=== PATIENT | female | born 1990 | race Caucasian/White ===

== ENCOUNTER 2020-07-05 10:58 | Emergency (ER) | payer OTHER, SELFPAY ==
--- NOTE | ~2020-07-05 | CT_ITS ---
EXAMINATION: CT abdomen pelvis w con DATE: 07/05/2020 12:38 INDICATION: Left buttock pain for 2 days. Perirenal abscess. TECHNIQUE: Computed tomography (CT) of the abdomen and pelvis was performed with 100 cc Omnipaque 350 intravenous contrast. Automated exposure control and iterative reconstruction technique were employe d. Exam dose: 382.13 mGy-cm total exam DLP. COMPARISON: None. FINDINGS: The lung bases are clear. Normal heart size. No pericardial or pleural effusion. The liver, gallbladder, bile ducts, pancreas, pancreatic duct and spleen appear normal. Normal morpho logy of the adrenal glands. No renal mass lesion or urinary tract calculus or hydroureteronephrosis i s detected. The uterus, adnexal areas and urinary bladder are unremarkable except for approximately 2 cm left ovarian cyst and mild likely physiologic free fluid in the cul-de-sac. Approximately 2.5 x 4.2 cm axial x 2.6 cm vertical dimension left posterolateral perirectal abscess, abutting the fifth sacral segment and coccyx posteriorly. IMPRESSION: Posterolateral left perirectal abscess measuring 2.5 x 4.2 x 2.6 cm 2 cm left ovarian cyst Reviewed, dictated and finalized at [facility] Reviewed, dictated and finalized at [facility] D[employer] YOUTH COUNSELOR IMPRESSION: Posterolateral left perirectal abscess measuring 2.5 x 4.2 x 2.6 c m 2 cm left ovarian cyst
[2020-07-05 11:05] VITALS: BP 112/70; PULSE 97; RESP 16; TEMP 36.9; O2SAT 100
--- NOTE | 2020-07-05 11:18 | ED.SKABFB ---
HPI - Skin/Abscess/Foreign Bdy General Chief complaint: Skin/Abscess/Foreign Body Stated complaint: pain/inflammation near anus Time Seen by Provider: 07/05/20 11:18 Source: patient Mode of arrival: ambulatory Limitations: no limitations History of Present Illness HPI narrative: 30-year-old woman comes in today complaining of pain on the left side of her and has for the last 2 days. Patient states that she has had no fever, pain with bowel movements, vomiting, blood in her stools, but she has felt ill for the last 24 hours. She denies prior similar symptoms. She is on Nexplanon. complaint: abscess/boil Onset (ago): day(s) (2) Location: buttocks Severity: moderate Quality: sharp Pain Consistency: constant Relieving factors: none Exacerbating factors: palpation and movement Associated symptoms: malaise Treatments prior to arrival: none Related Data Allergies Allergy/AdvReac Type Severity Reaction Status Date / Time No Known Allergies Allergy Verified 07/05/20 11:43 Review of Systems Constitutional: Constitutional: Denies chills and Denies fever(s) Eyes: Eyes: Denies change in vision and Denies photophobia ENT: Denies dysphagia, Denies nasal congestion and Denies sore throat Cardiovascular: Cardiovascular: Denies chest pain and Denies radiating jaw, neck or arm pain Respiratory: Respiratory: Denies cough, Denies dyspnea and Denies wheezing Gastrointestinal: Gastrointestinal: Denies abdominal pain, Denies diarrhea, Denies nausea and Denies vomiting Genitourinary: Genitourinary: Denies nocturia and Denies dysuria Musculoskeletal: Musculoskeletal: Denies back pain, Denies arthralgias and Denies joint swelling Integumentary/Breasts: Skin/Breast: Denies pruritus, Denies erythema and Denies rash Neurologic: Denies vertigo, Denies dizziness and Denies syncope Hematologic/Lymphatic: Hematologic/Lymphatic: Denies easy bleeding and Denies easy bruising Allergic/Immunologic: Allergic/Immunologic: Denies lip swelling and Denies tongue swelling PMFSH Surgical History Surgical History (Updated 07/05/20 @ 11:36 by Angel Green MD) History of appendectomy Social History Social History (Updated 07/05/20 @ 11:36 by Angel Green MD) Smoking status: Current every day smoker Alcohol intake: current Substance use: current Substance use type: marijuana Living arrangements: with family Exam Const: General: healthy appearing and alert Orientation/consciousness: patient oriented x3 Other: Mild acute distress Eyes: Conjunctivae: conjunctivae normal Pupils: Equal, round and reactive pupils present EOM: EOMs intact bilaterally Resp: Effort & Inspection: normal respiratory effort and not labored Auscultation: clear to auscultation bilaterally, no rales, no rhonchi and no wheezes Cardio: Rate: regular rate Rhythm: regular rhythm Heart sounds: no murmurs GI: GI Palp: Yes Soft to palpation and No Tenderness to palpation present (GI) Rectal Exam: No hemorrhoids Other: Tenderness, mild swelling and induration with overlying mild erythema in the left perianal area, Dorsal to the anus. TASHIA revealed no induration, tenderness, swelling or masses proximal to the sphincter. Skin: General skin exam: normal color, no jaundice and no pallor Rashes: no rashes Neuro: General: patient oriented x3, moves all extremities, no focal motor deficits and CN's II-XI intact bilaterally Speech: normal speech Gait exam (Neuro): Normal gait present Extrem: General: normal to inspection and no clubbing, cyanosis or edema Psych: Appearance: grossly normal and well kempt Mental Status: mental status grossly normal Affect: normal affect Attitude: cooperative Thought content: Yes Normal thought content present Course Vital Signs Vital signs: Vital Signs Temperature 36.9 C 07/05/20 11:05 Pulse Rate 97 07/05/20 11:05 Respiratory Rate 16 07/05/20 11:05 Blood Pressure 112/70 07/05/20 11:05 Pulse Oxim
[2020-07-05 11:37] LABS: Basophils Absolute Auto 0.03 K/mm3 (0.00-0.10); Basophils Percent Auto 0.2 % (0.0-1.0); Eosinophils Percent Auto 1.4 % (1.0-6.0); Hematocrit 39.4 % (35.0-49.0); Immature Granulocyte Absolute 0.07 K/mm3 (0.00-0.00); Immature Granulocyte Percent A 0.5 % (0.0-0.0); Lymphocytes Absolute Auto 1.99 K/mm3 (1.10-4.50); Mean Corpuscular Hemoglobin 30.6 pg (27.0-31.0); Mean Corpuscular Volume 92.7 fL (78.0-102.0); Mean Platelet Volume 10.4 fl (9.2-11.8); Monocytes Absolute Auto 0.93 K/mm3 (0.10-0.90); Monocytes Percent Auto 6.5 % (2.0-11.0); Neutrophils Percent Auto 77.4 % (50.0-70.0); Platelet Count Result 221 K/mm3 (150-420); Red Blood Count 4.25 M/mm3 (4.20-5.40); Red Cell Distribution Width 13.1 % (11.6-14.4); White Blood Count 14.2 K/mm3 (4.8-10.8)
[2020-07-05 11:53] LABS: Alanine Aminotransferase 18 U/L (14-59); Albumin Level 3.7 g/dL (3.4-5.0); Alkaline Phosphatase 68 U/L (46-116); Anion Gap 9 mmol/L (8-16); Aspartate Amino Transferase 13 U/L (15-37); Bilirubin,Total 0.6 mg/dL (0.00-1.00); Blood Urea Nitrogen 8 mg/dL (7-18); CRP 3.4 mg/dL (0.0-0.9); Calcium 8.8 mg/dL (8.5-10.1); Carbon Dioxide 25 mmol/L (21-32); Chloride 102 mmol/L (98-108); Estimated CRCL calculation 91 ml/min; Estimated Glomerular Filt Rate > 60; Glucose 92 mg/dL (70-99); Osmolality Calculated 280 mOsm/kg (285-295); Potassium 3.5 mmol/L (3.5-5.1); Sodium 136 mmol/L (136-145); Total Protein 7.4 g/dL (6.4-8.2)
[2020-07-05 12:04] LABS: Add Urine Microscopic? YES; Appearance Urine Sl Cloudy (Clear); Bilirubin Urine Negative (Negative); Blood Urine 2+ (Negative); Color Urine Yellow (Yellow); Glucose Urine UA Negative (Negative); Ketones Urine Negative (Negative); Leukocyte Esterase Ur Negative (Negative); Nitrate Urine Negative (Negative); Pregnancy On Board Control Positive; Protein Urine Negative (Negative); Urine Pregnancy Test Negative; Urobilinogen Urine 0.2 mg/dL (0.2-1.0)
[2020-07-05 12:08] LABS: Squamous Epithelial Cell Urine Moderate /hpf (Few); WBC Urine None seen /hpf (0-3)
[2020-07-05 12:09] LABS: Bacteria Urine 1+ /hpf
[2020-07-05 12:38] LABS: Erythrocyte Sedimentation Rate 23 mm/hr (0-15)
--- NOTE | 2020-07-05 13:02 | PC.NURSE ---
1255 MEGAN CONTACTED PER ERP REQUEST. MESSAGE LEFT ON VOICEMAIL. 1300 MACIE, MARKETING TECHNOLOGY SPECIALIST, CALLED BACK. MACIE TO PAGE OUT [employer] CARRIAGE OPERATOR SURGEON, DR. CAMPBELL. AWAITING CALL BACK
[2020-07-05 13:21] VITALS: PULSE 90; RESP 15; TEMP 36.6; O2SAT 98
== END 2020-07-05 13:26 | disposition home or self-care (01) ==
PROVIDERS: Emergency Provider Emergency Medicine
DX: K61.0 Anal abscess (principal)
CPT/HCPCS: 36415; 74177; 80053; 81001; 81025; 85025; 85652; 86140; 99283; 99284; A9270; Q9967

== ENCOUNTER 2020-07-06 17:56 | Observation (INO) | payer OTHER, SELFPAY ==
[2020-07-06 18:34] VITALS: BP 129/73; PULSE 101; RESP 18; TEMP 37.5; O2SAT 100
--- NOTE | 2020-07-06 18:35 | ED.GENADULT ---
HPI - General Adult General Chief complaint: Skin/Abscess/Foreign Body <Duarte Back PA-C - Last Filed: 07/06/20 19:26> Stated complaint: abcess <Duarte Back PA-C - Last Filed: 07/06/20 19:26> Time Seen by Provider: 07/06/20 17:58 <Duarte Back PA-C - Last Filed: 07/06/20 19:26> Source: patient, family and old records reviewed <Duarte Back PA-C - Last Filed: 07/06/20 19:26> Mode of arrival: ambulatory <Duarte Back PA-C - Last Filed: 07/06/20 19:26> Limitations: no limitations <Duarte Back PA-C - Last Filed: 07/06/20 19:26> History of Present Illness HPI narrative: Patient is a 30-year-old female who presents with perirectal irritation and swelling diagnosed with perirectal abscess yesterday at [facility] placed on Bactrim given pain medicine sent home and returns noting that the areas increasing with redness swelling and tenderness patient notes subjective fever with chills patient has been compliant with her medication but notes that the irritation is getting worse patient denies vomiting. Patient presents per private vehicle <Duarte Back PA-C - Last Filed: 07/06/20 19:26> Related Data Allergies/adverse reactions: Allergies Allergy/AdvReac Type Severity Reaction Status Date / Time No Known Allergies Allergy Verified 07/06/20 18:38 <Duarte Back PA-C - Last Filed: 07/06/20 19:26> Review of Systems Review of Systems: All systems reviewed & are unremarkable except as noted in HPI and below <Duarte Back PA-C - Last Filed: 07/06/20 19:26> PMFSH Surgical History Surgical History: Surgical History History of appendectomy <Duarte Back PA-C - Last Filed: 07/06/20 19:26> Social History Social History: Social History Smoking status: Current every day smoker Alcohol intake: current Substance use: current Substance use type: marijuana Gender identity (if verbalized by the patient): Female <KEVAN Marcano Last Filed: 07/06/20 19:26> Exam Narrative: Exam Narrative: GENERAL: Well-appearing, well-nourished, and in no acute distress. HEAD: Normocephalic, atraumatic. EYES: PERRLA and EOMI. ENT: Nares clear, no rhinorrhea or epistaxis. Mucous membranes moist. CHEST: Clear to auscultation. No respiratory distress. No wheezes rales or rhonchi HEART: Regular rate and rhythm. No murmur heard. Normal peripheral pulses. ABDOMEN: Soft, nontender, nondistended EXTREMITIES: Normal range of motion. No edema. SKIN: Warm, dry, no rash. Patient with red tender swollen area in the perirectum worse along the left side where there is some fluctuance for potential drainage site. NEURO: No focal deficits. Alert and oriented x3. Cranial nerves II through XII grossly intact PSYCH: Normal mood and affect. <KEVAN Marcano Last Filed: 07/06/20 19:26> Course Consultations Consultation #1: Spoke with Dr. Mccoy the surgeon who will admit the patient with consultation in the morning would like attempted I&D as well as IV antibiotics n.p.o. status at midnight <KEVAN Marcano Last Filed: 07/06/20 19:26> Date: 07/06/20 <KEVAN Marcano Last Filed: 07/06/20 19:26> Time: 18:37 <KEVAN Marcano Last Filed: 07/06/20 19:26> Vital Signs Vital signs: Vital Signs Temperature 37.5 C 07/06/20 18:34 Pulse Rate 101 H 07/06/20 18:34 Respiratory Rate 18 07/06/20 18:34 Blood Pressure 129/73 07/06/20 18:34 Pulse Oximetry 100 07/06/20 18:34 Temperature 37.5 C 07/06/20 18:34 Pulse Rate 96 07/06/20 20:17 Respiratory Rate 18 07/06/20 20:17 Blood Pressure 116/64 07/06/20 20:17 Pulse Oximetry 97 07/06/20 20:17 <KEVAN Marcano Last Filed: 07/06/20 19:26> Vital Signs Temperature 37.5 C 07/06/
--- NOTE | 2020-07-06 18:47 | PC.NURSE ---
IV unsuccessful after 3 attempts per this RN and 2 attempts per student. Pt states she is a hard stick due to having using IV drugs in the past.
[2020-07-06 19:07] LABS: Basophils Absolute Auto 0.1 K/mm3 (0.0-0.1); Basophils Percent Auto 0.2 % (0.2-1.2); Eosinophils Absolute Auto 0.1 K/mm3 (0-0.3); Eosinophils Percent Auto 0.3 % (0-4.4); Hematocrit 38.9 % (37.0-47.0); Hemoglobin 13.3 g/dL (12.0-15.0); Immature Granulocyte Absolute 0.11 K/mm3 (0.00-0.031); Immature Granulocyte Percent A 0.5 % (0-0.5); Lymphocytes Absolute Auto 1.68 K/mm3 (0.9-3.2); Mean Corpuscular HGB Conc 34.2 g/dl (32-36); Mean Corpuscular Hemoglobin 31.4 pg (26-34); Mean Platelet Volume 11.1 fl (7.4-10.4); Monocytes Absolute Auto 1.4 K/mm3 (0.1-0.6); Monocytes Percent Auto 6.6 % (2.6-8.5); Neutrophils Absolute Auto 17.8 K/mm3 (1.3-6.7); Neutrophils Percent Auto 84.4 % (45.5-73.1); Platelet Count Result 213 k/mm3 (150-375); Red Blood Count 4.23 M/mm3 (4.2-5.4); Red Cell Distribution Width 13.2 % (11.5-14.5); White Blood Count 21.1 K/mm3 (4.5-10.0)
[2020-07-06] MEDS: LORazepam INJ (*CRX) 2 MG/ML VIAL 1 MG IV PUSH (19:08)
[2020-07-06] MEDS: SODIUM CHLORIDE 0.9% IV 1,000 ML 999 ML IV CONT (19:08)
[2020-07-06] MEDS: IBUPROFEN IV 800 MG/200 ML 800 MG/200 ML BAG 400 MG IVPB (19:08)
[2020-07-06] MEDS: MORPHINE SULFATE (*CRX) 4 MG/ML INJ IV PUSH (19:08)
[2020-07-06 19:22] LABS: Alanine Aminotransferase 10 U/L (4-35); Albumin Level 4.3 g/dL (3.5-5.1); Alkaline Phosphatase 68 U/L (38-126); Anion Gap 8 mmol/L (8-16); Aspartate Amino Transferase 22 U/L (14-36); Bilirubin,Total 0.4 mg/dL (0.2-1.3); Blood Urea Nitrogen 8 mg/dL (7-17); CRP 5.6 mg/dL (<1.0); Calcium 9.2 mg/dL (8.4-10.2); Carbon Dioxide 23 mmol/L (22-30); Chloride 103 mmol/L (98-107); Estimated CRCL calculation 112 ml/min; Estimated Glomerular Filt Rate > 60; Glucose 95 mg/dL (65-105); Potassium 3.5 mmol/L (3.4-5.0); Sodium 134 mmol/L (137-145)
[2020-07-06] MEDS: LACTATED RINGERS 1,000 ML 125 ML IV CONT ×2 (20:13→22:17)
[2020-07-06] MEDS: CIPROFLOXACIN 400 MG/D5W 200ML 200 ML 200 MG IVPB (20:14)
[2020-07-06] MEDS: metroNIDAZOLE 500 MG/ISO 100ML 500 MG/100 ML BAG 100 MG IVPB (20:14)
[2020-07-06 20:17] VITALS: BP 116/64; PULSE 96; RESP 18; O2SAT 97
[2020-07-06] MEDS: ONDANSETRON INJ 4 MG/2 ML VIAL (21:14)
--- NOTE | 2020-07-06 21:19 | PC.NURSE ---
pt to the floor [id number] @[id number]
--- NOTE | 2020-07-06 21:34 | ADMGEN ---
This patient, Roxanne Delatorre, was admitted to 2 Medical Room 251-. Patient/family oriented to hospital policies and general routines including ID bracelet, bed and alarms, visiting hours, pain management, procedures, bathroom and other care routines, personal items, smoking policy, room service/diet, and visiting hours. Information on how to activate the Rapid Response Team has been discussed. Patient/Family are encouraged to report perceived risks to care and to ask questions if they do not understand what they are told or what they should do.
[2020-07-06 22:00] VITALS: BP 120/64; PULSE 98; RESP 16; TEMP 36.7; O2SAT 98
[2020-07-06] MEDS: FAMOTIDINE 20 MG/2 ML VIAL IV PUSH (22:17)
[2020-07-06 23:29] VITALS: BMI 30.3
[2020-07-07] VITALS (8 sets, daily range): BP systolic 103–122; BP diastolic 55–82; PULSE 78–91; RESP 16–18; TEMP 36.3–36.6; O2SAT 92–100
[2020-07-07] MEDS: metroNIDAZOLE 500 MG/ISO 100ML 500 MG/100 ML BAG 100 MG IVPB ×2 (03:32→11:28)
[2020-07-07 05:20] LABS: Basophils Percent Auto 0.3 % (0.2-1.2); Eosinophils Absolute Auto 0.1 K/mm3 (0-0.3); Eosinophils Percent Auto 0.9 % (0-4.4); Hematocrit 33.3 % (37.0-47.0); Hemoglobin 11.1 g/dL (12.0-15.0); Immature Granulocyte Absolute 0.07 K/mm3 (0.00-0.031); Immature Granulocyte Percent A 0.4 % (0-0.5); Lymphocytes Percent Auto 10.1 % (18.3-44.2); Mean Corpuscular HGB Conc 33.3 g/dl (32-36); Mean Corpuscular Hemoglobin 30.5 pg (26-34); Mean Corpuscular Volume 91.5 fl (80-100); Mean Platelet Volume 10.9 fl (7.4-10.4); Monocytes Absolute Auto 1.3 K/mm3 (0.1-0.6); Neutrophils Absolute Auto 12.7 K/mm3 (1.3-6.7); Neutrophils Percent Auto 80.3 % (45.5-73.1); Platelet Count Result 168 k/mm3 (150-375); Red Blood Count 3.64 M/mm3 (4.2-5.4); Red Cell Distribution Width 12.9 % (11.5-14.5); White Blood Count 15.8 K/mm3 (4.5-10.0)
[2020-07-07] MEDS: LACTATED RINGERS 1,000 ML 125 ML IV CONT (07:47)
[2020-07-07] MEDS: FAMOTIDINE 20 MG/2 ML VIAL IV PUSH ×2 (08:03→20:24)
[2020-07-07] MEDS: MORPHINE SULFATE (*CRX) 4 MG/ML INJ IV PUSH (08:04)
[2020-07-07] MEDS: ONDANSETRON INJ 4 MG/2 ML VIAL IV PUSH (08:04)
[2020-07-07] MEDS: CIPROFLOXACIN 400 MG/D5W 200ML 200 ML 200 MG IVPB ×2 (08:12→20:25)
--- NOTE | 2020-07-07 10:27 | PM.IMHP ---
H&P: HPI History of Present Illness Date/Time: 07/07/20 10:27 Chief Complaint: Perirectal pain and swelling Narrative: Roxanne Delatorre is a 30 year old female who presented to the ER for further evaluation perirectal pain and swelling. She reports first noticing a small bump around her anus 4 days ago. She reports been noticing swelling and redness the following day. She presented to the emergency department in [place] on 06/04/[address] scan of the abdomen and pelvis showed a posterior lateral left perirectal abscess measuring 2.5 x 4.2 x 2.6 cm. She was given Bactrim and Toradol and discharged home. She reportedly took the Bactrim as prescribed, but felt the swelling and pain worsened over the next 24 hours. Yesterday, she presented to [place] ER for further evaluation. She was found to have a left perirectal abscess, and a bedside I and D was performed in the ER. Cultures were taken. Our service was consulted by the ED provider and she has been admitted in this setting. The patient is now seen on the medical floor. She reports improvement of overall pressure and swelling after the I&D. She reports still having a significant amount of perirectal pain, requiring morphine. She reports after getting the morphine, she developed nausea and dry heaving. She denies having these symptoms prior to admission. Denies fever or chills at home. No other complaints at this time. Review of Systems Constitutional: Constitutional: Reports as per HPI, Denies chills, Denies fatigue, Denies fever(s) and Denies headache(s) Eyes: Eyes: Reports no additional eye complaints and Denies change in vision ENT: Reports Normal hearing present, Denies dizziness and Denies headache(s) Cardiovascular: Cardiovascular: Reports no additional cardiovascular complaints, Denies chest pain, Denies syncope and Denies leg edema Respiratory: Respiratory: Reports no additional respiratory complaints, Denies cough, Denies dyspnea and Denies wheezing Gastrointestinal: Gastrointestinal: Reports as per HPI, Reports no additional gastrointestinal complaints, Denies abdominal pain, Denies bloating, Denies constipation, Reports nausea (r/t morphine), Reports vomiting and Reports other (perirectal pain) Genitourinary: Genitourinary: Denies hematuria and Denies dysuria Musculoskeletal: Musculoskeletal: Reports no additional musculoskeletal complaints, Denies deformity, Denies joint swelling, Denies radiating pain into limb and Denies tingling Integumentary/Breasts: Skin/Breast: Denies pruritus, Denies lesions, Reports erythema (perirectal), Reports wounds (I&D in ER) and Denies jaundice Neurologic: Reports system reviewed and no additional complaints, except as documented, Denies syncope, Denies tingling and Denies tremor(s) Psychiatric: Psychiatric: Denies anxiety and Denies depression [facility] Past Medical History Medical History No pertinent past medical history Surgical History Surgical History History of appendectomy Laparoscopic appendectomy as teenager Family History Family History Other No known health problems Social History Social History Smoking packs per day: 0.5 Smoking cigarettes per day: 10.0 Smoking status: Current every day smoker Tobacco type: cigarettes Second hand tobacco smoke exposure: Yes Alcohol intake: current Drinks per week: 3 Substance use: current Substance use type: marijuana Living arrangements: with family Additional living arrangements comments: Lives with her best friend and the friend's boyfriend, and her 2 year old daughter. 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
[2020-07-07] MEDS: IBUPROFEN IV 800 MG/200 ML 800 MG/200 ML BAG 370.37 MG IVPB (11:12)
[2020-07-07] MEDS: DOCUSATE SODIUM 100 MG CAPSULE PO ×2 (15:03→20:25)
[2020-07-07] MEDS: NICOTINE (*PBKC) 14 MG PATCH 1 PATCH TRANSDERM (15:42)
[2020-07-07] MEDS: metroNIDAZOLE 500 MG/ISO 100ML 500 MG/100 ML BAG 200 MG IVPB (19:42)
[2020-07-07] MEDS: HYDROcodone/acetaminophen (*CRX) 10-325 MG TABLET 1 TAB PO (19:44)
[2020-07-08 05:34] VITALS: BP 114/64; PULSE 83; RESP 16; TEMP 36.6; O2SAT 100
[2020-07-08 05:34] LABS: Hematocrit 37.1 % (37.0-47.0); Hemoglobin 12.4 g/dL (12.0-15.0); Mean Corpuscular HGB Conc 33.4 g/dl (32-36); Mean Corpuscular Hemoglobin 31.2 pg (26-34); Mean Corpuscular Volume 93.2 fl (80-100); Mean Platelet Volume 10.5 fl (7.4-10.4); Platelet Count Result 199 k/mm3 (150-375); Red Blood Count 3.98 M/mm3 (4.2-5.4); Red Cell Distribution Width 12.9 % (11.5-14.5); White Blood Count 9.4 K/mm3 (4.5-10.0)
[2020-07-08] MEDS: HYDROcodone/acetaminophen (*CRX) 10-325 MG TABLET 1 TAB PO (08:30)
[2020-07-08] MEDS: FAMOTIDINE 20 MG/2 ML VIAL IV PUSH (08:31)
[2020-07-08] MEDS: ONDANSETRON INJ 4 MG/2 ML VIAL IV PUSH (08:31)
[2020-07-08] MEDS: DOCUSATE SODIUM 100 MG CAPSULE PO (08:31)
[2020-07-08] MEDS: NICOTINE (*PBKC) 14 MG PATCH 1 PATCH TRANSDERM (08:32)
[2020-07-08] MEDS: CIPROFLOXACIN 400 MG/D5W 200ML 200 ML 200 MG IVPB (08:32)
--- NOTE | 2020-07-08 10:49 | PM.DS ---
DS: Admitting Diagnosis Admitting Diagnosis Admitting Diagnosis: Perirectal abscess DS: Discharge Diagnosis Discharge Diagnosis (1) Abscess, perirectal: Code(s): K61.1 - Rectal abscess Status: Acute Assessment and Plan: Status post incision and drainage of perirectal abscess on 07/06/20 in the ED DS: Summary Hospital Course Reason for hospitalization: Roxanne Delatorre is a 30 year old female with no significant past medical history, who presented to the ER for further evaluation perirectal pain and swelling. She first noticed a small bump around her anus, now 5 days ago. This area became more red, painful, and swollen. She presented to the emergency department in [place] on 06/04/[address] scan of the abdomen and pelvis showed a posterior lateral left perirectal abscess measuring 2.5 x 4.2 x 2.6 cm. She was given Bactrim and Toradol and discharged home. She reportedly took the Bactrim as prescribed, but felt the swelling and pain worsened over the next 24 hours. She then presented to [place] ER for further evaluation. She was found to have a left perirectal abscess, and a bedside I and D was performed in the ER. Cultures were taken. She was then admitted to the hospital for observation in this setting. Hospital Course: The patient was started on IV ciprofloxacin and metronidazole. Following the I and D in the ER, she had packing of quarter-inch iodoform gauze daily to the incision. Yesterday, her white blood cell count was coming down and she was afebrile, but she continued to have a significant amount of pain and induration at the area of the abscess. She also had nausea and vomiting, felt to be associated to the analgesics. Her pain medication was adjusted, and this ultimately improved. She was treated with antiemetics. Labs were repeated again this morning, and her white blood cell count was normal. Today, the patient had a significant improvement in her pain and is tolerating oral analgesics. On exam, the induration and erythema has improved significantly. She is less tender on exam. She remains afebrile. She will be discharged home today on oral antibiotics and follow up in our office in 2 weeks. Time spent discussing smoking cessation with patient: 3 to 10 minutes (She was given a nicotine patch while in the hospital.) Status at Discharge Functional status at discharge: independent ambulation Overall status at discharge: patient is progressing back to baseline Time Spent with Patient Time attestation: Total time spent providing and/or coordinating discharge services: Time spent: Greater than 30 minutes Exam Const: General: comfortable, no acute distress, alert and awake Orientation/consciousness: patient oriented x3 Resp: Effort & Inspection: normal respiratory effort Auscultation: clear to auscultation bilaterally Cardio: Rate: regular rate Rhythm: regular rhythm GI: Inspection: non-distended GI Palp: Yes Soft to palpation and No Tenderness to palpation present (GI) Auscultation: normal bowel sounds Other: Left lateral perirectal abscess with significant improvement of erythema and induration today. No purulence drainage. Skin: General skin exam: normal color Neuro: General: moves all extremities and no focal motor deficits Extrem: General: normal to inspection and no clubbing, cyanosis or edema Psych: Mental Status: mental status grossly normal Speech and movement: Normal speech and movement present Insight: Good insight present (Psych) Judgement: Good judgement present (Psych) DS: Data Data Completed and Pending Labs on day of discharge: Labs from last 24 hours 07/08/20 05:16 WBC 9.4 RBC 3.98 L Hgb 12.4 Hct 37.1 MCV 93.2 MCH 31.2 MCHC 33.4 RDW 12.9 Plt Count 199 MPV 10.5 H Preliminary micro results at discharge 07/06/20 19:30 Anaerobic Culture - Preliminary Abscess Aerobic Culture - Preliminary Discharge Plan Discharge Attending physician
--- NOTE | 2020-07-08 11:00 | PC.NURSE ---
On 07/08/20, the student, [ Karen Bright], provided care and completed [facility] documentation on this patient. I have reviewed the student's documentation and agree with the findings.
== END 2020-07-08 11:30 | disposition home or self-care (01) ==
LOC: ANHED 19:30 → ANH2MED 21:25
PROVIDERS: Emergency Medicine Emergency Medical Services; Nurse Practitioner Family; Admitting Provider Surgery; Emergency Provider Emergency Medicine; Visit Provider Surgery
DX: L02.31 Cutaneous abscess of buttock (principal); K61.1 Rectal abscess; F17.210 Nicotine dependence, cigarettes, uncomplicated
CPT/HCPCS: 10061; 36415; 80053; 85025; 85027; 86140; 87070; 87075; 87076; 87185; 87205; 96361; 96365; 96366; 96367; 96368; 96375; 96376; 99285; A9270; G0378; G0379; J0131; J0744; J1741; J2060; J2270; J2405; J7030; J7120